=== PATIENT | female | born 1960 | race African-American/Black ===

== ENCOUNTER 2016-12-09 17:43 | Emergency (ER) | payer OTHER ==
[~2016-12-09 17:43] MED LIST: AMLO5TAB2 PO; BAYE325T; BENT20TA PO; CARB200T PO; DEPA250T2 PO; FEXO15TA PO; FLUT1SPR5 EACH NARE; GABA600T PO; HYDR12.57 PO; LISI-515 PO; MAAL10003 CHEW; PANT40TA3 PO; [UNRECOGNIZED DRUG - REMARK]
[2016-12-09 17:44] VITALS: BP 191/114; PULSE 83; RESP 17; TEMP 98.2; O2SAT 100
[2016-12-09] MEDS ORDERED: SODIUM CHLOR 0.9% 1000 ML INJ 1,000 ML IV SCH (18:58)
[2016-12-09] MEDS ORDERED: ONDANSETRON HCL 4 MG/2 ML VIAL IVP ONE (19:00)
[2016-12-09] MEDS ORDERED: SODIUM CHLORIDE 0.9% FLUSH 5 ML FLUSH IVF PRN (19:00)
--- NOTE | 2016-12-09 19:05 | PD ---
HPI Chief Complaint: Abdominal Pain Time Seen by Provider: 19:01 Travel History International Travel<30 days: No Contact w/Intl Traveler<30days: No Traveled to known affect area: No History of Present Illness HPI 56-year-old female presents to the emergency department for evaluation of epigastric abdominal pain that started this morning. She states that she ate breakfast at [facility]. Possibly 1.5 hours later, she started with abdominal pain and vomiting. She states she has vomited 4 times today. She also states she had a bowel movement every time she vomited, but denies diarrhea. She denies any blood in her stool. Patient is reported history of hysterectomy. She denies any other abdominal surgeries. She denies any fevers or chills. No chest pain or shortness of breath. She was a history of hypertension, trigeminal neuralgia. PFSH Past Medical History Cardiac Catheterization: No Cardiovascular Problems: Yes ( HTN) High Cholesterol: No Cerebrovascular Accident: Yes Diabetes: No Diminished Hearing: No Gastrointestinal Disorders: Yes (ACID REFLUX) Hypertension: Yes Neurologic: Yes (TRIGEMINAL NEURALGIA) Myocardial Infarction: No Menopausal: Yes : 5 Para: 3 Miscarriage: 2 Past Surgical History Coronary Artery Bypass Graft: No Hysterectomy: Yes Social History Alcohol Use: Yes (OCCASIONALLY WINE BEER) Tobacco Use: No Substance Use: No Allergies-Medications (Allergen,Severity, Reaction): Coded Allergies: Sulfa (Verified Allergy, Severe, HIVES, 12/09/16) Reported Meds & Prescriptions Reported Meds & Active Scripts Active Ondansetron Odt 4 Mg Tab 4 Mg SL Q6HR PRN Maalox Advanced Maximum Strength (Calcium Carbonate-Simethicone) 1,000-60 Mg Chew 1-2 Tab CHEW QID PRN [address] (Divalproex Sodium) 250 Mg Tabdr 250 Mg PO BID Flonase Allergy Relief Nasal [place] (Fluticasone Nasal [place]) 50 Mcg/Act [place] 50 Mcg EACH NARE BID Hydrochlorothiazide 12.5 Mg Cap 12.5 Mg PO DAILY Lisinopril 20 Mg Tab 20 Mg PO DAILY Amlodipine (Amlodipine Besylate) 5 Mg Tab 5 Mg PO BID Ber[place]ane Aspirin (Aspirin) 325 Mg Tab 325 Mg Carbamazepine 200 Mg Tab 600 Mg PO TID Gabapentin 600 Mg Tab 600 Mg PO Q6HR [sinus antibiotic] Review of Systems Except as stated in HPI: all other systems reviewed are Neg Physical Exam Narrative GENERAL: Well-developed well-nourished female patient, ambulatory. Afebrile. SKIN: Warm and dry. HEAD: Normocephalic. Atraumatic. EYES: No scleral icterus. No injection or drainage. NECK: Supple, trachea midline. No JVD or lymphadenopathy. CARDIOVASCULAR: Regular rate and rhythm without murmurs, gallops, or rubs. RESPIRATORY: Breath sounds equal bilaterally. No accessory muscle use. Lungs sounds clear to auscultation. GASTROINTESTINAL: Abdomen soft and nondistended. Patient has diffuse abdominal tenderness, worse in the epigastric region. MUSCULOSKELETAL: No cyanosis, or edema. BACK: Nontender without obvious deformity. No CVA tenderness. Data Data Last Documented VS Vital Signs Date Time Temp Pulse Resp B/P Pulse Ox O2 Delivery O2 Flow Rate FiO2 12/09/16 20:41 18 12/09/16 20:38 79 165/83 99 Room Air 12/09/16 17:44 98.2 Orders Complete Blood Count With Diff (12/09/16 18:58) Comprehensive Metabolic Panel (12/09/16 18:58) Lipase (12/09/16 18:58) Urinalysis - C+S If Indicated (12/09/16 18:58) Iv Access Insert/Monitor (12/09/16 18:58) Ecg Monitoring (12/09/16 18:58) Oximetry (12/09/16 18:58) Ondansetron Inj (Zofran Inj) (12/09/16 19:00) Sodium Chlor 0.9% 1000 Ml Inj (Ns 1000 M (12/09/16 18:58) Sodium Chloride 0.9% Flush (Ns Flush) (12/09/16 19:00) Electrocardiogram (12/09/16 18:58) Ct Abd/Pel W/O Iv Contrast (12/09/16 ) Morphine Inj (Morphine Inj) (12/09/16 19:45) Al-Mag Hy-Si 40-40-4 Mg/Ml Liq (Mag-Al P (12/09/16 20:45) Lidocaine 2% Viscous (Xylocaine 2% Visco (12/09/16 20:45) Labs Laboratory Tests Test 12/09/16 12/09/16 19:10 20:00 White Blood Count 10.6 TH/MM3 Red Blood Count 4.03 MIL/MM3 Hemoglobin 13.0 GM/DL Hematocrit 38.5 % Mean Corpuscular Volume 95.5 FL Mean Corpuscular Hemoglobin 32.3 PG Mean Corpuscular Hemoglobin 33.9 % Concent Red Cell Distribution Width 13.9 % Platelet Count 219 TH/MM3 Mean Platelet Volume 9.8 FL Neutrophils (%) (Auto) 85.6 % Lymphocytes (%) (Auto) 9.0 % Monocytes (%) (Auto) 5.0 % Eosinophils (%) (Auto) 0.0 % Basophils (%) (Auto) 0.4 % Neutrophils # (Auto) 9.1 TH/MM3 Lymphocytes # (Auto) 1.0 TH/MM3 Monocytes # (Auto) 0.5 TH/MM3 Eosinophils # (Auto) 0.0 TH/MM3 Basophils # (Auto) 0.0 TH/MM3 CBC Comment DIFF FINAL Differential Comment Sodium Level 139 MEQ/L Potassium Level 3.6 MEQ/L Chloride Level 102 MEQ/L Carbon Dioxide Level 29.4 MEQ/L Anion Gap 8 MEQ/L Blood Urea Nitrogen 17 MG/DL Creatinine 1.06 MG/DL Estimat Glomerular Filtration 64 ML/MIN Rate Random Glucose 136 MG/DL Calcium Level 8.4 MG/DL Total Bilirubin 0.2 MG/DL Aspartate Amino Transf 15 U/L (AST/SGOT) Alanine Aminotransferase 23 U/L (ALT/SGPT) Alkaline Phosphatase 93 U/L Total Protein 7.5 GM/DL Albumin 3.7 GM/DL Lipase 88 U/L Urine Color YELLOW Urine Turbidity HAZY Urine pH 8.5 Urine Specific [place] 1.022 Urine Protein 30 mg/dL Urine Glucose (UA) NEG mg/dL Urine Ketones NEG mg/dL Urine Occult Blood NEG Urine Nitrite NEG Urine Bilirubin NEG Urine Urobilinogen LESS THAN 2.0 MG/DL Urine Leukocyte Esterase NEG Urine RBC 3 /hpf Urine WBC 3 /hpf Urine Squamous Epithelial 1 /hpf Cells Urine Bacteria NONE /hpf Urine Mucus FEW /lpf Urine Yeast (Budding) FEW Microscopic Urinalysis Comment CULT NOT INDICATED MDM Medical Decision Making Medical Screen Exam Complete: Yes Emergency Medical Condition: Yes Medical Record Reviewed: Yes Interpretation(s) CT abdomen/pelvis - no acute CT findings Differential Diagnosis Gastroenteritis versus pancreatitis versus UTI Narrative Course 56-year-old female presents to the emergency department for evaluation of abdominal pain that started this morning. CBC, CMP, lipase, UA are ordered and pending. CT abdomen/pelvis with IV contrast is ordered and pending. EKG shows sinus rhythm, heart rate [address] changes. CBC shows normal WBC count of 10.6, neutrophilia 85.6. CMP shows no acute abnormalities. Lipase is 88. UA shows no acute infection. CT of the abdomen/pelvis shows no acute findings. Patient is given GI cocktail Patient is stable for discharge. She will be discharged with a prescription for Zofran. She is to follow up with her primary care provider. She is agreeable. Diagnosis Primary Impression: Abdominal pain Qualified Code: R10.13 - Epigastric pain Referrals: Primary Care Physician call for appointment Patient Instructions: Abdominal Pain (ED), General Instructions Additional Instructions: Take Zofran as instructed as needed for nausea/vomiting. [place] diet. Drink plenty of fluids. Follow-up with your primary care physician. Return to the emergency department for any acute worsening of symptoms. Med/Other Pt SpecificInfo: Prescription(s) given Scripts Ondansetron Odt 4 Mg Tab4 Mg SL Q6HR PRN (Nausea/Vomiting) #16 TAB Ref 0 Prov:Juliana Gan 12/09/16 Disposition: 01 DISCHARGE HOME Condition: Stable Juliana Gan Dec 09, 2016 19:05
[2016-12-09 19:32] VITALS: O2SAT 99
[2016-12-09 19:36] LABS: AUTOMATED NEUTROPHIL # 9.1 TH/MM3 (1.8-7.7); BASOPHIL % 0.4 % (0.0-2.0); HEMATOCRIT 38.5 % (35.0-46.0); HEMO FLAGS DIFF FINAL; MEAN CELL VOLUME 95.5 FL (80.0-100.0); MEAN CORPUSCULAR HEMOGLOBIN 32.3 PG (27.0-34.0); MEAN CORPUSCULAR HGB CONC 33.9 % (32.0-36.0); NEUT % 85.6 % (16.0-70.0); PLATELET COUNT 219 TH/MM3 (150-450); RED BLOOD COUNT 4.03 MIL/MM3 (4.00-5.30); RED CELL DISTRIBUTION WIDTH 13.9 % (11.6-17.2); WHITE BLOOD COUNT 10.6 TH/MM3 (4.0-11.0)
[2016-12-09] MEDS ORDERED: MORPHINE SULFATE 4 MG/ML INJ IV PUSH ONE (19:45)
--- NOTE | 2016-12-09 19:54 | PD ---
Data Data Last Documented VS Vital Signs Date Time Temp Pulse Resp B/P Pulse Ox O2 Delivery O2 Flow Rate FiO2 12/09/16 20:38 79 18 165/83 99 Room Air 12/09/16 17:44 98.2 Orders Complete Blood Count With Diff (12/09/16 18:58) Comprehensive Metabolic Panel (12/09/16 18:58) Lipase (12/09/16 18:58) Urinalysis - C+S If Indicated (12/09/16 18:58) Iv Access Insert/Monitor (12/09/16 18:58) Ecg Monitoring (12/09/16 18:58) Oximetry (12/09/16 18:58) Ondansetron Inj (Zofran Inj) (12/09/16 19:00) Sodium Chlor 0.9% 1000 Ml Inj (Ns 1000 M (12/09/16 18:58) Sodium Chloride 0.9% Flush (Ns Flush) (12/09/16 19:00) Electrocardiogram (12/09/16 18:58) Ct Abd/Pel W/O Iv Contrast (12/09/16 ) Morphine Inj (Morphine Inj) (12/09/16 19:45) Labs Laboratory Tests Test 12/09/16 19:10 White Blood Count 10.6 TH/MM3 Red Blood Count 4.03 MIL/MM3 Hemoglobin 13.0 GM/DL Hematocrit 38.5 % Mean Corpuscular Volume 95.5 FL Mean Corpuscular Hemoglobin 32.3 PG Mean Corpuscular Hemoglobin 33.9 % Concent Red Cell Distribution Width 13.9 % Platelet Count 219 TH/MM3 Mean Platelet Volume 9.8 FL Neutrophils (%) (Auto) 85.6 % Lymphocytes (%) (Auto) 9.0 % Monocytes (%) (Auto) 5.0 % Eosinophils (%) (Auto) 0.0 % Basophils (%) (Auto) 0.4 % Neutrophils # (Auto) 9.1 TH/MM3 Lymphocytes # (Auto) 1.0 TH/MM3 Monocytes # (Auto) 0.5 TH/MM3 Eosinophils # (Auto) 0.0 TH/MM3 Basophils # (Auto) 0.0 TH/MM3 CBC Comment DIFF FINAL Differential Comment Sodium Level 139 MEQ/L Potassium Level 3.6 MEQ/L Chloride Level 102 MEQ/L Carbon Dioxide Level 29.4 MEQ/L Anion Gap 8 MEQ/L Blood Urea Nitrogen 17 MG/DL Creatinine 1.06 MG/DL Estimat Glomerular Filtration 64 ML/MIN Rate Random Glucose 136 MG/DL Calcium Level 8.4 MG/DL Total Bilirubin 0.2 MG/DL Aspartate Amino Transf 15 U/L (AST/SGOT) Alanine Aminotransferase 23 U/L (ALT/SGPT) Alkaline Phosphatase 93 U/L Total Protein 7.5 GM/DL Albumin 3.7 GM/DL Lipase 88 U/L MDM Supervised Visit with LAZARUS: Yes Narrative Course I, Dr. Fuentes, have reviewed the advance practice practioner's documentation and am in agreement, met with the patient face to face, made the diagnosis, and the medical decision making was done by me. *My assessment and Findings: 56-year-old obese female here with epigastric and periumbilical abdominal pain since this morning after eating breakfast at [place]. 1.5 hours after breakfast she had pain with vomiting. No diarrhea. She is had previous hysterectomy and tubal but denies any other previous abdominal surgeries, history of obstruction, pancreatitis, gastritis or hepatobiliary pathology. On exam patient is uncomfortable with moderate periumbilical and epigastric tenderness to palpation but no rebound or guarding. Differential includes gastritis, pancreatitis, hepatobiliary pathology, bowel obstruction, food poisoning, gastroenteritis Less likely urinary source or cardiac equivalent. Patient given morphine, Zofran. Twelve-lead EKG shows sinus rhythm without notable ST abnormalities and normal intervals. CBC, CMP, lipase, CT abdomen and pelvis notable for unremarkable. We'll treat for gastritis with antacid, GI cocktail. Urinalysis remains pending for disposition home. Daina Fuentes MD Dec 09, 2016 19:54
[2016-12-09 20:11] LABS: ANION GAP 8 MEQ/L (5-15); BICARBONATE 29.4 MEQ/L (21.0-32.0); BLOOD UREA NITROGEN 17 MG/DL (7-18); CHLORIDE 102 MEQ/L (98-107); GLOMERULAR FILTRATION RATE 64 ML/MIN (>89); POTASSIUM 3.6 MEQ/L (3.5-5.1); SODIUM (NA) 139 MEQ/L (136-145)
[2016-12-09 20:14] LABS: ALKALINE PHOSPHATASE 93 U/L (45-117); ALT (GPT) 23 U/L (10-53); AST (GOT) 15 U/L (15-37); TOTAL BILIRUBIN ADULT 0.2 MG/DL (0.2-1.0)
--- NOTE | 2016-12-09 20:36 | RADRPT ---
EXAM DATE/TIME: 12/09/2016 20:23 [place] COMPARISON: None. INDICATIONS : Epigastric pain and vomiting; possible food poisoning. ORAL CONTRAST: No oral contrast ingested. RADIATION DOSE: 22.28 CTDIvol (mGy) MEDICAL HISTORY : Cardiovascular disease. Cerebrovascular disease. Hypertension. SURGICAL HISTORY : Hysterectomy. ENCOUNTER: Initial ACUITY: 1 day PAIN SCALE: 5/10 LOCATION: abdomen TECHNIQUE: Volumetric scanning of the abdomen and pelvis was performed. Using automated exposure control and ad justment of the mA and/or kV according to patient size, radiation dose was kept as low as reasonably achievable to obtain optimal diagnostic quality images. FINDINGS: LOWER LUNGS: The visualized lower lungs are clear. LIVER: Homogeneous density without lesion. There is no dilation of the biliary tree. No calcified gallston es. SPLEEN: Normal size without lesion. PANCREAS: Within normal limits. KIDNEYS: Normal in size and shape. There is no mass, stone, or hydronephrosis. ADRENAL GLANDS: There is benign-appearing lobular low-density prominence of the left adrenal gland. Right adrenal is unremarkable. VASCULAR: There is no aortic aneurysm. BOWEL/MESENTERY: Small hiatal hernia. Distal colonic diverticula. No evidence of abnormal dilatation, wall thickening or focal inflammatory change. ABDOMINAL WALL: Fat-containing periumbilical hernia without evidence of incarceration. RETROPERITONEUM: There is no lymphadenopathy. BLADDER: No wall thickening or mass. REPRODUCTIVE: Within normal limits. INGUINAL: There is no lymphadenopathy or hernia. MUSCULOSKELETAL: Within normal limits for patient age. CONCLUSION: No acute CT findings in the abdomen or pelvis. Arie Dean MD Board Certified Radiologist. This report was verified electronically.
[2016-12-09 20:38] VITALS: BP 165/83; PULSE 79; RESP 18; O2SAT 99
[2016-12-09] MEDS ORDERED: ONDA4TAB7 SL (20:43)
[2016-12-09] MEDS ORDERED: LIDOCAINE VISCOUS 2% SOLN 15 ML UDC PO ONE (20:45)
[2016-12-09] MEDS ORDERED: ALUMINUM/MAGNESIUM/SIMETH 30 ML CUP PO ONE (20:45)
[2016-12-09 20:48] LABS: BLOOD, URINE NEG (NEG); COMMENT (UR) CULT NOT INDICATED; CULTURE IF INDICATED CULT NOT INDICATED; GLUCOSE,URINE NEG (NEG); KETONE, URINE NEG (NEG); MUCUS URINE FEW /lpf (OCC); NITRITE,URINE NEG (NEG); PH, URINE 8.5 (5.0-8.5); SQUAMOUS EPITHELIAL CELL URINE 1 /hpf (0-5); URINE COLOR YELLOW (YELLW/STRAW)
[2016-12-09 21:50] VITALS: BP 160/94; PULSE 84; RESP 18; TEMP 98.4; O2SAT 99
[2016-12-09] MEDS ORDERED: PROMETHAZINE INJ 25 MG/ML VIAL IM ONE (22:00)
--- NOTE | 2016-12-10 13:37 | EKG ---
Date Performed: 12/09/2016 Time Performed: 19:24:31 PTAGE: 56 years EKG: Sinus rhythm NORMAL ECG Compared to prior tracing no significant change PREVIOUS TRACING : 10/11/2014 13.01 DOCTOR: Regan Arias Interpretating Date/Time 12/10/2016 13:35:51
== END 2016-12-09 22:33 | disposition home or self-care (01) ==
LOC: NEPE 17:43
DX: R10.13 Epigastric pain (principal); R11.2 Nausea with vomiting, unspecified; I10 Essential (primary) hypertension; Z86.73 Personal history of transient ischemic attack (TIA), and cerebral infarction without residual deficits
CPT/HCPCS: 74176; 80053; 81001; 83690; 85025; 93005; 96361; 96372; 96374; 99284; J2270; J2405; J2550; J7030